=== PATIENT | male | born 1990 | race American Indian/Alaskan Native ===

== ENCOUNTER 2016-12-22 13:23 | Emergency (ER) | payer OTHER ==
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
--- NOTE | 2016-12-22 15:55 | Cat Scan Report ---
FINAL REPORT EXAM: CT CERVICAL SPINE WO CON HISTORY: back pain TECHNIQUE: CT scan of the cervical spine without IV contrast. Multiplanar reformations. PRIORS: None FINDINGS: No significant/acute vertebral body malalignment. No fracture seen. No significant spinal stenosis. No soft tissue swelling. IMPRESSION: 1. No acute finding.
--- NOTE | 2016-12-22 15:59 | Cat Scan Report ---
FINAL REPORT EXAM: CT LUMBAR SPINE WO CON HISTORY: back pain TECHNIQUE: CT scan of the lumbar spine without IV contrast. Multiplanar reformations. PRIORS: None FINDINGS: No fracture or focal malalignment seen. No spinal stenosis. Minor disc bulge L4-5 and L5-S1. Mild foraminal narrowing bilaterally at L4-5 and L5-S1. IMPRESSION: 1. Mild degenerative changes. No acute finding.
[2016-12-22 16:27] VITALS: BP 148/98
== END 2016-12-22 16:28 | disposition home or self-care (01) ==
LOC: ED 13:23
DX: M54.2 Cervicalgia (principal); M54.5 Low back pain; V49.49XA Driver injured in collision with other motor vehicles in traffic accident, initial encounter; Y92.488 Other paved roadways as the place of occurrence of the external cause; Y93.89 Activity, other specified; Y99.9 Unspecified external cause status
CPT/HCPCS: 72125; 72131